=== PATIENT | female | born 1980 | race Hispanic/Latino ===

== ENCOUNTER 2018-04-22 08:00 | Emergency (ER) | payer OTHER ==
[2018-04-22 08:08] VITALS: O2SAT 100
[2018-04-22 08:09] VITALS: BMI 24.9
[2018-04-22] MEDS ORDERED: Sodium Chloride 0.9% 1,000 ML IV STA (08:44)
--- NOTE | 2018-04-22 08:53 | ED PDOC ---
HPI: Abdomen Time Seen by Provider: 04/22/18 08:28 Chief Complaint (Nursing): Abdominal Pain Chief Complaint (Provider): Abdominal Pain History Per: Patient History/Exam Limitations: no limitations Onset/Duration Of Symptoms: Days (x2) Current Symptoms Are (Timing): Still Present Additional Complaint(s): 38 y/o female with no significant PMHx presenting for evaluation of abdominal pain with associated nausea, vomiting, diarrhea, and hematochezia x2 days. Patient states she returned from the [facility], with a stop in [facility], on Wednesday. She states Wednesday she woke up with abdominal pain, nausea, vomiting, and diarrhea and thought she had food poisoning. She says on she went to [facility] where she was given prescriptions for antibiotics and antiemetics. She states this morning she woke up and had 1 episode of non- bilious, non-bloody vomiting and 3 episodes of bloody stools. Patient denies any dysuria, radiation of abdominal pain, chest pain, shortness of breath, or leg swelling. She reports she hasn't eaten for 2 days and has been drinking Pedialyte. LMP was 1 week ago. PMD: Dr Karla Jensen ([facility]) Past Medical History Reviewed: Historical Data, Nursing Documentation, Vital Signs Vital Signs: Last Vital Signs Temp 98.0 F 04/22/18 08:10 Pulse 68 04/22/18 08:10 Resp 17 04/22/18 08:10 BP 149/90 04/22/18 08:10 Pulse Ox 100 04/22/18 09:05 - Medical History PMH: No Chronic Diseases - Surgical History Surgical History: No Surg Hx - Family History Family History: States: Unknown Family Hx - Social History Current smoker - smoking cessation education provided: No Alcohol: None Drugs: Denies - Home Medications Home Medications: Ambulatory Orders Medication Instructions Recorded Ciprofloxacin [Cipro] 500 mg PO BID #14 tab 04/22/18 metroNIDAZOLE [Flagyl] 500 mg PO BID #14 tab 04/22/18 - Allergies Allergies/Adverse Reactions: Allergies Allergy/AdvReac Type Severity Reaction Status Date / Time No Known Allergies Allergy Verified 04/22/18 08:34 Review of Systems ROS Statement: Except As Marked, All Systems Reviewed And Found Negative Constitutional: Positive for: Chills. Negative for: Fever Cardiovascular: Negative for: Chest Pain Respiratory: Negative for: Shortness of Breath Gastrointestinal: Positive for: Nausea, Vomiting, Abdominal Pain, Diarrhea, Hematochezia Genitourinary Female: Negative for: Dysuria Physical Exam - Reviewed Nursing Documentation Reviewed: Yes Vital Signs Reviewed: Yes - Physical Exam Appears: Positive for: Non-toxic, No Acute Distress Head Exam: Positive for: ATRAUMATIC, NORMAL INSPECTION, NORMOCEPHALIC Skin: Positive for: Normal Color, Warm, Dry. Negative for: Rash Eye Exam: Positive for: EOMI, Normal appearance, PERRL ENT: Positive for: Normal ENT Inspection Neck: Positive for: Normal, Painless ROM, Supple Cardiovascular/Chest: Positive for: Regular Rate, Rhythm. Negative for: Murmur Respiratory: Positive for: Normal Breath Sounds. Negative for: Respiratory Distress Gastrointestinal/Abdominal: Positive for: Soft, Tenderness (mild diffuse tenderness). Negative for: Rebound Back: Positive for: Normal Inspection. Negative for: L CVA Tenderness, R CVA Tenderness, Vertebral Tenderness Extremity: Positive for: Normal ROM. Negative for: Pedal Edema, Deformity Neurologic/Psych: Positive for: Alert, Oriented. Negative for: Motor/Sensory Deficits - Laboratory Results Result Diagrams: 04/22/18 09:21 04/22/18 09:21 - ECG O2 Sat by Pulse Oximetry: 100 (RA) Pulse Ox Interpretation: Normal Medical Decision Making Medical Decision Makin:44 Impression: Abdominal pain Plan: -CT abdomen and pelvis with IV contrast -CMP -Lipase -Urine -Urine dipstick -CBC -1LNS -Pepcid 20mg IVP -Zofran 4mg IVP -IV Insertion -Reevaluation 08:50 U-preg negative. U-dip found significant for ketones, but no leukocytes, nitrates, or blood. Scribe Attestation: Documented by Rajinder Bach, acting as a scribe for Lizette Galan MD. Provider Scribe Attestation: All medical record entries made by the Scribe were at my direction and personally dictated by me. I have reviewed the chart and agree that the record accurately reflects my personal performance of the history, physical exam, medical decision making, and the department course for this patient. I have also personally directed, reviewed, and agree with the discharge instructions and disposition. CT results noted. Will start antibiotics in ER and continue outpatient treatment. Advised followup with PMD in [facility]. Disposition - Clinical Impression Clinical Impression: Colitis - Patient ED Disposition Is Patient to be Admitted: No Doctor Will See Patient In The: Office Counseled Patient/Family Regarding: Diagnosis, Need For Followup, Rx Given - Disposition Referrals: Norbert Dutta MD [Staff Provider] - [facility] Lucio [Outside] Disposition: Routine/Home Disposition Time: 11:42 Condition: IMPROVED Additional Instructions: Discontinue the antibiotic azithromycin that was ordered by the local urgent care center. Prescriptions: Ciprofloxacin [Cipro] 500 mg PO BID #14 tab metroNIDAZOLE [Flagyl] 500 mg PO BID #14 tab Instructions: Diarrhea in Adolescents and Adults, Bloody Stools, Adult (DC) Forms: Electron Database (Bangladeshi) - POA Present On Arrival: None
[2018-04-22 09:26] LABS: BASO % 0.2 % (0.0-2.0); EOS % 0.1 % (0.0-4.0); HEMOGLOBIN 14.9 g/dL (12.0-16.0); LYMPH % 7.1 % (20.0-40.0); MEAN CELL VOLUME 91.4 fl (81.0-99.0); MEAN CORPUSCULAR HEMOGLOBIN 30.7 pg (27.0-31.0); MEAN CORPUSCULAR HGB CONC 33.5 g/dL (33.0-37.0); MEAN PLATELET VOLUME 9.4 fl (7.2-11.7); MONO # 0.9 K/uL (0.0-0.8); NEUT # 12.7 K/uL (1.8-7.0); NEUT % 86.6 % (50.0-75.0); PLATELET COUNT 174 K/uL (130-400); RBC 4.86 Mil/uL (3.80-5.20); RED CELL DISTRIBUTION WIDTH 12.4 % (11.5-14.5); WHITE BLOOD COUNT 14.7 K/uL (4.8-10.8)
[2018-04-22 09:37] LABS: ALB/GLOB RATIO 1.5 (1.0-2.1); ALBUMIN 4.2 g/dL (3.5-5.0); ALT/SGPT 23 U/L (9-52); AST/SGOT 17 U/L (14-36); BLOOD UREA NITROGEN 10 mg/dl (7-17); CALCIUM 9.3 mg/dL (8.4-10.2); GFR AFRICAN-AMERICAN > 60; GFR NON-AFRICAN AMERICAN > 60; LIPASE 41 U/L (23-300)
[2018-04-22] MEDS ORDERED: Sodium Chloride 0.9% 50 ML IV ONE (10:02)
[2018-04-22] MEDS ORDERED: Iohexol 300 100 ML IJ ONE (10:02)
[2018-04-22 10:56] LABS: LYMPHOCYTE 7 % (20-50); MONOCYTE 5 % (0-10); NEUTROPHIL 87 % (42-75); PLATELET ESTIMATE NORMAL (NORMAL); REACTIVE LYMPHOCYTES 1 % (0-0); TOTAL CELLS COUNTED 100
--- NOTE | 2018-04-22 10:56 | CT ---
Date of service: 04/22/2018 PROCEDURE: CT Abdomen and Pelvis with contrast HISTORY: gastroenteritis w/bloody stool;internatl travel COMPARISON: None. TECHNIQUE: CT scan of the abdomen and pelvis was performed after administration of intravenous contrast. Oral contrast was not administered. Coronal and sagittal reformatted images were obtained. Contrast dose: 95 cc Omnipaque 300 Radiation dose: Total exam DLP = 685.71 mGy-cm. This CT exam was performed using one or more of the following dose reduction techniques: Automated exposure control, adjustment of the mA and/or kV according to patient size, and/or use of iterative reconstruction technique. FINDINGS: LOWER THORAX: The visualized lungs are clear. LIVER: Normal in size with diffuse fatty infiltration. No gross lesion or ductal dilatation. GALLBLADDER AND BILE DUCTS: There are multiple small gallstones. PANCREAS: Normal in size with homogeneous enhancement. No gross lesion or ductal dilatation. SPLEEN: Normal in size and appearance. ADRENALS: No discrete nodule. KIDNEYS AND URETERS: Normal in size with homogeneous enhancement. No hydronephrosis. No solid mass. VASCULATURE: No aortic aneurysm. BOWEL: The small bowel loops are normal in caliber. There is long segmental severe mural thickening, edema and mucosal enhancement in the distal transverse colon, splenic flexure and proximal and mid descending colon with severe pericolonic inflammatory changes. No bowel obstruction. APPENDIX: Normal appendix. PERITONEUM: There is small amount of free fluid in the pelvis. No free air. LYMPH NODES: No enlarged lymph nodes. BLADDER: Grossly normal in appearance. REPRODUCTIVE: The uterus is normal in size. BONES: No acute fracture. Severe degenerative disc disease at L5-S1. OTHER FINDINGS: None. IMPRESSION: 1. Severe acute long segmental nonspecific infectious/ inflammatory colitis involving the distal transverse colon, splenic flexure, proximal and mid descending colon. No bowel obstruction or perforation. No drainable fluid collection. Small amount of free fluid in the pelvis. 2. Cholelithiasis. 3. Fatty liver.
[2018-04-22 13:00] VITALS: BP 135/80; PULSE 72; RESP 16; TEMP 98.3
== END 2018-04-22 12:58 | disposition home or self-care (01) ==
LOC: H.ER 08:00
DX: K52.9 Noninfective gastroenteritis and colitis, unspecified (principal)
CPT/HCPCS: 74177; 80053; 81025; 83690; 85025; 96361; 96374; 96375; 99284; J2405; J7030; Q9967